=== PATIENT | male | born 1975 | race Caucasian/White ===

== ENCOUNTER 2017-05-06 13:01 | Inpatient (IN) | payer MEDICAID ==
[~2017-05-06] VITALS: Ht 188 cm; Wt 98.0 kg
[2017-05-06] MEDS ORDERED: FUROSEMIDE 40 MG/4 ML VIAL IV ONE (13:45)
[2017-05-06 13:47] LABS: Basophils # (auto) 0 uL; Hemoglobin 17.5 g/dL (13.5-17.5); Neutrophils # (auto) 5.3 uL
[2017-05-06 13:49] LABS: Basophils % (auto) 0.3 % (0.0-2.0); Eosinophils # (auto) 0 uL; Eosinophils % (auto) 0.6 % (0.0-7.0); Hematocrit 53.2 % (41.0-53.0); Lymphocytes # (auto) 1.5 uL; Lymphocytes % (auto) 20.2 % (10.0-50.0); Mean Corpuscular Hgb Conc. 32.9 g/dL (32.0-36.0); Mean Corpuscular Volume 94.2 fL (80.0-100.0); Monocytes # (auto) 0.6 uL; Monocytes % (auto) 8.2 % (0.0-12.0); Neutrophils % (auto) 70.7 % (37.0-80.0); Nucleated Red Blood Cells % 0.2 %; Platelet Count (auto) 221 10^3/uL (140-450); Red Blood Cells 5.65 10^6/uL (4.5-5.90); Red Cell Distribution Width 13.7 % (11.8-14.3); White Blood Cell 7.6 10^3/uL (4.4-10.8)
[2017-05-06] MEDS ORDERED: IOHEXOL 300 MG/ML 100ML BOTTLE IJ ONE (14:05)
[2017-05-06 14:10] LABS: Urine Bacteria FEW /hpf (None Seen); Urine Blood Negative /uL (Negative); Urine Mucus FEW (None Seen); Urine Specific Gravity 1.028 (1.001-1.035); Urine WBC 1 /hpf (0 - 3)
[2017-05-06 14:17] LABS: Albumin 3.9 g/dL (3.4-5.0); BUN/Creatinine Ratio 14.9; Calcium 8.9 mg/dL (8.5-10.1); Potassium 3.9 mmol/L (3.5-5.1)
[2017-05-06] MEDS ORDERED: ADENOSINE 6 MG/2 ML INJ IV ONE ×3 (15:45→16:15)
[2017-05-06] MEDS ORDERED: METOPROLOL TARTRATE 1MG/1ML-5ML VIAL IV ONE (16:00)
[2017-05-06] MEDS ORDERED: MORPHINE SULFATE 4 MG/ML SYR/VIAL IV PRN ×3 (16:30)
[2017-05-06] MEDS ORDERED: LACTULOSE 20Gm/30ML SOLN PO PRN (16:30)
[2017-05-06] MEDS ORDERED: CARVEDILOL 3.125 MG TAB PO ONE (16:30)
[2017-05-06] MEDS ORDERED: LORazepam 0.5 MG TAB PO PRN (16:30)
[2017-05-06] MEDS ORDERED: TEMAZEPAM 15 MG CAP PO PRN (16:30)
[2017-05-06] MEDS ORDERED: PROMETHAZINE HCL 25 MG/ML 1ML IV PRN (16:30)
[2017-05-06] MEDS: CARVEDILOL 3.125 MG TAB PO SCH ×2 (16:30→21:50)
[2017-05-06] MEDS ORDERED: NITROGLYCERIN 0.4 MG SL TAB SL PRN (16:30)
[2017-05-06 17:13] LABS: CRP High Sensitivity 0.37 mg/dL (< 0.3)
[2017-05-06] MEDS: ENALAPRIL MALEATE 2.5 MG TAB PO SCH (17:42)
[2017-05-06] MEDS: ENOXAPARIN SOD 40 MG/0.4 ML SYRINGE SC SCH (17:46)
[2017-05-06 18:02] LABS: Alcohol, Urine < 3.0 mg/dL (0-5); Amphetamine Screen, Urine NEGATIVE (NEGATIVE); Barbiturate Scree,Urine NEGATIVE (NEGATIVE); Benzodiazephine Screen, Urine NEGATIVE (NEGATIVE); Cannabinoid Screen, Urine NEGATIVE (NEGATIVE); Cocaine Screen, Urine NEGATIVE (NEGATIVE); Opiate Scree,Urine NEGATIVE (NEGATIVE); Phencyclidine Screen, Urine NEGATIVE (NEGATIVE)
[2017-05-06 18:49] LABS: INR 1.27 (0.9-1.15); Partial Thromboplastin Time 28.2 sec (22.64-33.71); Prothrombin Time 13.9 sec (9.37-12.3)
[2017-05-06] MEDS ORDERED: chlordiazePOXIDE HCL 25 MG CAP PO PRN (19:15)
[2017-05-06] MEDS ORDERED: AMIODARONE HCL 150 MG in D5W 5% 100 ML IV ONE (19:15)
[2017-05-06] MEDS ORDERED: THIAMINE HCL 100 MG/ML 2ML VIAL IV ONE (19:15)
[2017-05-06] MEDS ORDERED: AMIODARONE HCL 900 MG in DEXTROSE 500 ML IV SCH (19:24)
[2017-05-06] MEDS ORDERED: chlordiazePOXIDE HCL 5 MG CAP PO ONE (19:45)
[2017-05-06 20:00] VITALS: BP 114/89
[2017-05-06] MEDS: DIGOXIN (250MCG/ML) 2 ML AMPULE IV SCH (20:10)
[2017-05-06 20:15] VITALS: BP 114/89
[2017-05-06] MEDS: FUROSEMIDE 40 MG/4 ML VIAL IV SCH (21:49)
[2017-05-06] MEDS: THIAMINE HCL 100 MG TAB PO SCH (21:50)
[2017-05-06] MEDS: THIAMINE INJ 100 MG, MULTIPLE VITAMIN 10 ML, FOLIC ACID 1 MG, MAGNESIUM SULF SDV 50% 8 ... IV SCH ×5 (22:24)
[2017-05-06] MEDS: chlordiazePOXIDE HCL 5 MG CAP PO SCH (23:53)
[2017-05-07] VITALS (8 sets, daily range): BP systolic 96–134; BP diastolic 68–96
[2017-05-07] MEDS: DIGOXIN (250MCG/ML) 2 ML AMPULE IV SCH ×2 (01:43→08:41)
[2017-05-07] MEDS: AMIODARONE HCL 900 MG in DEXTROSE 500 ML IV SCH ×3 (02:00→21:02)
[2017-05-07] MEDS ORDERED: ALBUTEROL SULF 2.5 MG/0.5ML(0.5%) NEB SOLN ONE (02:26)
[2017-05-07] MEDS ORDERED: ALBUTEROL SULF 2.5 MG/0.5ML(0.5%) NEB SOLN NEB PRN (02:30)
[2017-05-07] MEDS: chlordiazePOXIDE HCL 5 MG CAP PO SCH ×3 (06:00→18:00)
[2017-05-07 06:09] LABS: Basophils # (auto) 0 uL; Basophils % (auto) 0.4 % (0.0-2.0); Eosinophils # (auto) 0 uL; Eosinophils % (auto) 0.4 % (0.0-7.0); Hematocrit 44.7 % (41.0-53.0); Hemoglobin 14.8 g/dL (13.5-17.5); Lymphocytes # (auto) 0.6 uL; Lymphocytes % (auto) 13.2 % (10.0-50.0); Mean Corpuscular Hemoglobin 31.4 pg (28.0-32.0); Mean Corpuscular Hgb Conc. 33.2 g/dL (32.0-36.0); Mean Corpuscular Volume 94.6 fL (80.0-100.0); Monocytes # (auto) 0.5 uL; Monocytes % (auto) 9.9 % (0.0-12.0); Neutrophils # (auto) 3.7 uL; Neutrophils % (auto) 76.1 % (37.0-80.0); Nucleated Red Blood Cells % 0.1 %; Platelet Count (auto) 172 10^3/uL (140-450); Red Blood Cells 4.72 10^6/uL (4.5-5.90); Red Cell Distribution Width 13.4 % (11.8-14.3); White Blood Cell 4.9 10^3/uL (4.4-10.8)
[2017-05-07 06:55] LABS: BUN/Creatinine Ratio 15.2; Bilirubin, Total 3.2 mg/dL (0.2-1.0); Calcium 7.6 mg/dL (8.5-10.1); Potassium 3.7 mmol/L (3.5-5.1); Total Protein 5.5 g/dL (6.4-8.2)
[2017-05-07] MEDS ORDERED: THIAMINE HCL 100 MG/ML 2ML VIAL IV SCH (10:00)
[2017-05-07] MEDS: POTASSIUM CHL 20 Meq TABLET PO SCH (11:19)
[2017-05-07] MEDS: SPIRONOLACTONE 25 MG TAB PO SCH (11:20)
[2017-05-07] MEDS: DIGOXIN 0.25 MG TAB PO SCH (11:20)
[2017-05-07] MEDS: PANTOPRAZOLE 40 MG TAB PO SCH (11:21)
[2017-05-07] MEDS: THIAMINE HCL 100 MG TAB PO SCH (11:21)
[2017-05-07] MEDS: ENALAPRIL MALEATE 2.5 MG TAB PO SCH (11:21)
[2017-05-07] MEDS: ENOXAPARIN SOD 40 MG/0.4 ML SYRINGE SC SCH (11:22)
[2017-05-07] MEDS: CARVEDILOL 3.125 MG TAB PO SCH ×2 (11:22→21:01)
[2017-05-07] MEDS: FUROSEMIDE 40 MG/4 ML VIAL IV SCH ×2 (11:23→21:01)
[2017-05-07] MEDS: THIAMINE INJ 100 MG, MULTIPLE VITAMIN 10 ML, FOLIC ACID 1 MG, MAGNESIUM SULF SDV 50% 8 ... IV SCH ×5 (20:21)
[2017-05-08] VITALS (7 sets, daily range): BP systolic 106–134; BP diastolic 68–77
[2017-05-08] MEDS: chlordiazePOXIDE HCL 5 MG CAP PO SCH ×4 (05:45→17:48)
[2017-05-08 06:00] LABS: Basophils # (auto) 0 uL; Basophils % (auto) 0.5 % (0.0-2.0); Eosinophils # (auto) 0.2 uL; Eosinophils % (auto) 3.8 % (0.0-7.0); Hematocrit 46.4 % (41.0-53.0); Hemoglobin 15.3 g/dL (13.5-17.5); Lymphocytes # (auto) 1.1 uL; Lymphocytes % (auto) 16.7 % (10.0-50.0); Mean Corpuscular Hemoglobin 31.1 pg (28.0-32.0); Mean Corpuscular Volume 94.1 fL (80.0-100.0); Monocytes # (auto) 0.6 uL; Neutrophils # (auto) 4.3 uL; Nucleated Red Blood Cells % 0.1 %; Platelet Count (auto) 178 10^3/uL (140-450); Red Blood Cells 4.93 10^6/uL (4.5-5.90); Red Cell Distribution Width 13.4 % (11.8-14.3); White Blood Cell 6.3 10^3/uL (4.4-10.8)
[2017-05-08 06:13] LABS: Albumin 2.9 g/dL (3.4-5.0); Potassium 3.4 mmol/L (3.5-5.1)
[2017-05-08 06:16] LABS: BUN/Creatinine Ratio 13.4
[2017-05-08 06:24] LABS: Bilirubin, Total 2.8 mg/dL (0.2-1.0); Total Protein 5.3 g/dL (6.4-8.2)
[2017-05-08] MEDS ORDERED: POTASSIUM CHLORIDE 20 MEQ, LIDOCAINE 1% (LOCAL ANESTH.) 2 ML in SODIUM CHL 0.9% 100 ML IV ONE (10:00)
[2017-05-08] MEDS: FUROSEMIDE 40 MG/4 ML VIAL IV SCH ×2 (10:20→17:58)
[2017-05-08] MEDS: CARVEDILOL 3.125 MG TAB PO SCH ×2 (10:21→22:17)
[2017-05-08] MEDS: SPIRONOLACTONE 25 MG TAB PO SCH (10:21)
[2017-05-08] MEDS: THIAMINE HCL 100 MG TAB PO SCH (10:21)
[2017-05-08] MEDS: POTASSIUM CHL 20 Meq TABLET PO SCH (10:21)
[2017-05-08] MEDS: DIGOXIN 0.25 MG TAB PO SCH (10:21)
[2017-05-08] MEDS: ENALAPRIL MALEATE 2.5 MG TAB PO SCH (10:22)
[2017-05-08] MEDS: ENOXAPARIN SOD 40 MG/0.4 ML SYRINGE SC SCH (10:22)
[2017-05-08] MEDS: PANTOPRAZOLE 40 MG TAB PO SCH (10:22)
[2017-05-08] MEDS ORDERED: AMIODARONE HCL 200 MG TAB ONE (11:48)
[2017-05-08] MEDS ORDERED: AMIODARONE HCL 200 MG TAB PO ONE (12:00)
[2017-05-08 17:53] LABS: Urine Bacteria NONE SEEN /hpf (None Seen); Urine Blood Negative /uL (Negative); Urine Specific Gravity 1.011 (1.001-1.035); Urine WBC <1 /hpf (0 - 3)
[2017-05-08] MEDS: AMIODARONE HCL 200 MG TAB PO SCH (22:16)
[2017-05-09] VITALS (7 sets, daily range): BP systolic 100–127; BP diastolic 53–73
[2017-05-09] MEDS: chlordiazePOXIDE HCL 5 MG CAP PO SCH ×5 (05:27→23:51)
[2017-05-09 06:11] LABS: Basophils # (auto) 0.1 uL; Basophils % (auto) 0.7 % (0.0-2.0); Eosinophils # (auto) 0.2 uL; Eosinophils % (auto) 3.1 % (0.0-7.0); Hematocrit 48.6 % (41.0-53.0); Hemoglobin 16.3 g/dL (13.5-17.5); Lymphocytes % (auto) 14.7 % (10.0-50.0); Mean Corpuscular Hemoglobin 31.4 pg (28.0-32.0); Mean Corpuscular Hgb Conc. 33.6 g/dL (32.0-36.0); Mean Corpuscular Volume 93.3 fL (80.0-100.0); Monocytes # (auto) 0.7 uL; Monocytes % (auto) 9.7 % (0.0-12.0); Neutrophils % (auto) 71.8 % (37.0-80.0); Platelet Count (auto) 201 10^3/uL (140-450); Red Blood Cells 5.21 10^6/uL (4.5-5.90); Red Cell Distribution Width 13.3 % (11.8-14.3); White Blood Cell 6.9 10^3/uL (4.4-10.8)
[2017-05-09 06:39] LABS: Albumin 3.2 g/dL (3.4-5.0); BUN/Creatinine Ratio 12.6; Bilirubin, Total 2.5 mg/dL (0.2-1.0); Calcium 8.2 mg/dL (8.5-10.1); Potassium 3.7 mmol/L (3.5-5.1); Total Protein 6.2 g/dL (6.4-8.2)
[2017-05-09] MEDS: FUROSEMIDE 40 MG/4 ML VIAL IV SCH ×2 (06:46→17:25)
[2017-05-09] MEDS: ENOXAPARIN SOD 40 MG/0.4 ML SYRINGE SC SCH (09:13)
[2017-05-09] MEDS: PANTOPRAZOLE 40 MG TAB PO SCH (09:19)
[2017-05-09] MEDS: AMIODARONE HCL 200 MG TAB PO SCH ×2 (09:19→22:29)
[2017-05-09] MEDS: ENALAPRIL MALEATE 2.5 MG TAB PO SCH (09:19)
[2017-05-09] MEDS: DIGOXIN 0.25 MG TAB PO SCH (09:20)
[2017-05-09] MEDS: CARVEDILOL 3.125 MG TAB PO SCH ×2 (09:21→22:29)
[2017-05-09] MEDS ORDERED: IODIXANOL 320MG/ML 100ML BTL IV ONE (09:29)
[2017-05-09] MEDS ORDERED: LIDOCAINE HCL 2 %PF INJ 10ML AMP IJ ONE (09:30)
[2017-05-09] MEDS ORDERED: SODIUM CHL 0.9% 0 ML ONE (10:06)
[2017-05-09] MEDS ORDERED: MIDAZOLAM HCL 1MG/1ML-2 ML VIAL ONE (10:06)
[2017-05-09] MEDS ORDERED: fentaNYL CITRATE 100 MCG/2 ML VL ONE (10:06)
[2017-05-09] MEDS ORDERED: ANGIOMAX 250 MG VIAL IV ONE (10:06)
[2017-05-09] MEDS: SPIRONOLACTONE 25 MG TAB PO SCH (12:22)
[2017-05-09] MEDS: THIAMINE HCL 100 MG TAB PO SCH (12:22)
[2017-05-09] MEDS: POTASSIUM CHL 20 Meq TABLET PO SCH (12:22)
[2017-05-10] VITALS (8 sets, daily range): BP systolic 91–119; BP diastolic 62–69
[2017-05-10] MEDS: chlordiazePOXIDE HCL 5 MG CAP PO SCH ×4 (06:00→23:27)
[2017-05-10] MEDS: FUROSEMIDE 40 MG/4 ML VIAL IV SCH ×2 (06:16→17:24)
[2017-05-10 06:34] LABS: BUN/Creatinine Ratio 13.1; Bilirubin, Total 2.5 mg/dL (0.2-1.0); Potassium 3.5 mmol/L (3.5-5.1)
[2017-05-10] MEDS: PANTOPRAZOLE 40 MG TAB PO SCH (10:21)
[2017-05-10] MEDS: THIAMINE HCL 100 MG TAB PO SCH (10:22)
[2017-05-10] MEDS: SPIRONOLACTONE 25 MG TAB PO SCH (10:22)
[2017-05-10] MEDS: AMIODARONE HCL 200 MG TAB PO SCH ×2 (10:22→21:36)
[2017-05-10] MEDS: DIGOXIN 0.25 MG TAB PO SCH (10:22)
[2017-05-10] MEDS: ENALAPRIL MALEATE 2.5 MG TAB PO SCH (10:23)
[2017-05-10] MEDS: CARVEDILOL 3.125 MG TAB PO SCH ×2 (10:23→21:34)
[2017-05-10] MEDS: ENOXAPARIN SOD 40 MG/0.4 ML SYRINGE SC SCH (10:24)
[2017-05-10] MEDS: POTASSIUM CHL 20 Meq TABLET PO SCH (10:24)
[2017-05-10] MEDS: APIXABAN 5 MG TAB PO SCH ×2 (13:39→21:35)
[2017-05-11] VITALS (9 sets, daily range): BP systolic 91–108; BP diastolic 58–73
[2017-05-11 05:52] LABS: Albumin 3.2 g/dL (3.4-5.0); BUN/Creatinine Ratio 13.2; Bilirubin, Total 2.5 mg/dL (0.2-1.0); Calcium 8.4 mg/dL (8.5-10.1); Potassium 3.6 mmol/L (3.5-5.1); Total Protein 6.7 g/dL (6.4-8.2)
[2017-05-11] MEDS: chlordiazePOXIDE HCL 5 MG CAP PO SCH ×4 (06:00→23:58)
[2017-05-11] MEDS: FUROSEMIDE 40 MG/4 ML VIAL IV SCH ×2 (06:06→18:00)
[2017-05-11] MEDS: APIXABAN 5 MG TAB PO SCH ×2 (09:55→22:11)
[2017-05-11] MEDS: SPIRONOLACTONE 25 MG TAB PO SCH (09:56)
[2017-05-11] MEDS: THIAMINE HCL 100 MG TAB PO SCH (09:56)
[2017-05-11] MEDS: AMIODARONE HCL 200 MG TAB PO SCH ×2 (09:56→22:11)
[2017-05-11] MEDS: CARVEDILOL 3.125 MG TAB PO SCH ×2 (10:00→22:00)
[2017-05-11] MEDS: PANTOPRAZOLE 40 MG TAB PO SCH (10:00)
[2017-05-11] MEDS: DIGOXIN 0.25 MG TAB PO SCH (10:00)
[2017-05-11] MEDS: POTASSIUM CHL 20 Meq TABLET PO SCH (10:00)
[2017-05-11] MEDS: ENALAPRIL MALEATE 2.5 MG TAB PO SCH (10:00)
[2017-05-12 05:20] VITALS: BP 108/65
[2017-05-12] MEDS: chlordiazePOXIDE HCL 5 MG CAP PO SCH ×4 (05:47→17:05)
[2017-05-12] MEDS: FUROSEMIDE 40 MG/4 ML VIAL IV SCH ×2 (05:47→17:05)
[2017-05-12 09:00] VITALS: BP 100/63
[2017-05-12] MEDS: ENALAPRIL MALEATE 2.5 MG TAB PO SCH (10:00)
[2017-05-12] MEDS: CARVEDILOL 3.125 MG TAB PO SCH (10:00)
[2017-05-12] MEDS: APIXABAN 5 MG TAB PO SCH (10:25)
[2017-05-12] MEDS: DIGOXIN 0.25 MG TAB PO SCH (10:25)
[2017-05-12] MEDS: PANTOPRAZOLE 40 MG TAB PO SCH (10:26)
[2017-05-12] MEDS: SPIRONOLACTONE 25 MG TAB PO SCH (10:26)
[2017-05-12] MEDS: POTASSIUM CHL 20 Meq TABLET PO SCH (10:26)
[2017-05-12] MEDS: THIAMINE HCL 100 MG TAB PO SCH (10:26)
[2017-05-12] MEDS: AMIODARONE HCL 200 MG TAB PO SCH (10:28)
[2017-05-12 12:00] VITALS: BP 102/81
[2017-05-12 13:00] VITALS: BP 102/81
[2017-05-12 16:00] VITALS: BP 92/67
== END 2017-05-12 17:06 | disposition home or self-care (01) | DRG 192 ==
LOC: ER 13:01 → OVERFLOW 13:02 → DOU IN ICU 20:00 → WEST WING 05-09 22:50 → TELE-WESTW 05-09 22:55
PROVIDERS: ADMIT Internal Medicine; ATTEND Internal Medicine
PROC: 4A023N7 Measurement of Cardiac Sampling and Pressure, Left Heart, Percutaneous Approach (ICD-10-PCS; principal; 2017-05-09)
PROC: B2111ZZ Fluoroscopy of Multiple Coronary Arteries using Low Osmolar Contrast (ICD-10-PCS; 2017-05-09)
PROC: B2151ZZ Fluoroscopy of Left Heart using Low Osmolar Contrast (ICD-10-PCS; 2017-05-09)
DX: I13.0 Hypertensive heart and chronic kidney disease with heart failure and stage 1 through stage 4 chronic kidney disease, or unspecified chronic kidney disease (principal); J96.20 Acute and chronic respiratory failure, unspecified whether with hypoxia or hypercapnia; I42.0 Dilated cardiomyopathy; D68.59 Other primary thrombophilia; E44.0 Moderate protein-calorie malnutrition; N17.9 Acute kidney failure, unspecified; K76.0 Fatty (change of) liver, not elsewhere classified; I48.92 Unspecified atrial flutter; N18.3 Chronic kidney disease, stage 3 (moderate); I50.23 Acute on chronic systolic (congestive) heart failure; K70.9 Alcoholic liver disease, unspecified; I48.91 Unspecified atrial fibrillation; F10.20 Alcohol dependence, uncomplicated; F12.90 Cannabis use, unspecified, uncomplicated; I44.30 Unspecified atrioventricular block; Z82.49 Family history of ischemic heart disease and other diseases of the circulatory system; Z79.899 Other long term (current) drug therapy; Z68.27 Body mass index [BMI] 27.0-27.9, adult
CPT/HCPCS: 36415; 71046; 74177; 76700; 80053; 80061; 80162; 80307; 81001; 82150; 82550; 83690; 83735; 83880; 84443; 84484; 85025; 85379; 85610; 85652; 85730; 86141; 86850; 86900; 86901; 87081; 93005; 93306; 93458; 94640; 96374; 96375; 96376; 99152; J0153; J2001; J2250; J7060; Q9967